=== PATIENT | male | born 1950 | race Caucasian/White ===

== ENCOUNTER 2025-03-12 05:35 | Emergency (ER) | payer MEDICARE, MEDICAID ==
[~2025-03-12] VITALS: Ht 180.3 cm; Wt 99.8 kg
[2025-03-12] MEDS ORDERED: HYDROMORPHONE 1 MG/1 ML DISP.SYRIN ONE (06:02)
[2025-03-12] MEDS ORDERED: ONDANSETRON ODT 4 MG TAB.RAPDIS ONE (06:02)
[2025-03-12] MEDS: ONDANSETRON ODT 4 MG TAB.RAPDIS SL ONE (06:10)
[2025-03-12] MEDS: HYDROMORPHONE 1 MG/1 ML DISP.SYRIN IM ONE ×2 (06:11→07:39)
[2025-03-12] MEDS ORDERED: diphenhydrAMINE 50 MG/1 ML VIAL ONE (07:37)
[2025-03-12] MEDS ORDERED: HYDROMORPHONE 2 MG/1 ML DISP.SYRIN ONE (07:37)
[2025-03-12] MEDS: diphenhydrAMINE 50 MG/1 ML VIAL IM ONE (07:39)
[2025-03-12] MEDS ORDERED: NAPR500T6 PO (09:10)
[2025-03-12 09:34] VITALS: BP 142/86; TEMP 97.4; O2SAT 98
== END 2025-03-12 09:36 | disposition home or self-care (01) ==
LOC: ER 05:35
DX: S16.1XXA Strain of muscle, fascia and tendon at neck level, initial encounter (principal); S09.8XXA Other specified injuries of head, initial encounter; R10.31 Right lower quadrant pain; Y04.8XXA Assault by other bodily force, initial encounter; Y93.89 Activity, other specified; Y92.89 Other specified places as the place of occurrence of the external cause; Y99.8 Other external cause status
CPT/HCPCS: 99285; 70450; 72040; 96372 ×2; J1171 ×2; A4606; A4663; J1200; Q0162

== ENCOUNTER 2025-09-22 04:51 | Emergency (ER) | payer BC, MEDICAID ==
[~2025-09-22] VITALS: Ht 180.3 cm; Wt 99.8 kg
[~2025-09-22 04:51] MED LIST: NAPR500T6 PO
[2025-09-22 06:48] LABS: PLATELET COUNT (AUTO) 197 K/uL (152-348); RED BLOOD CELL COUNT(AUTO) 4.11 MIL/uL (4.06-5.63); RED CELL DISTRIBUTION WIDTH 14.3 % (12.1-16.2); WHITE BLOOD COUNT (AUTO) 5.6 K/uL (3.6-10.2)
[2025-09-22 06:57] LABS: ASPARTATE AMINOTRANSFERASE 13 U/L (15-37); CREATININE 0.8 mg/dL (0.6-1.3); SODIUM SERUM 145 mmol/L (136-145); TOTAL PROTEIN, SERUM 7.4 g/dL (6.4-8.2); UREA NITROGEN, BLOOD 18 mg/dL (7-18)
[2025-09-22 06:58] LABS: ETHANOL < 3 MG/DL (0-10)
[2025-09-22 10:21] LABS: *BILIRUBIN,URIN NEGATIVE (NEGATIVE); *BLOOD, URINE NEGATIVE (NEGATIVE); *CLARITY,URINE CLEAR (CLEAR); *COLOR,URINE YELLOW (YELLOW); *KETONES,URINE NEGATIVE (NEGATIVE); *PROTEIN,URINE NEGATIVE (NEGATIVE); *UROBILINOGEN,URINE 0.2 E.U./dl (NORMAL); LEUKOCYTE ESTERASE ,URINE NEGATIVE (NEGATIVE); NITRITE, URINE NEGATIVE (NEGATIVE); UGLUCOSE NEGATIVE (NEGATIVE)
[2025-09-22 10:31] LABS: *AMPHETAMINE, URINE POSITIVE (NEGATIVE); *BARBITURATE, URINE NEGATIVE (NEGATIVE); *BENZODIAZEPINE, URINE NEGATIVE (NEGATIVE); *CANNABINOID, URINE NEGATIVE (NEGATIVE); *COCCAINE, URINE NEGATIVE (NEGATIVE); *OPIATE, URINE NEGATIVE (NEGATIVE); *PHENCYCLIDINE SCREEN,URINE POSITIVE (NEGATIVE); FENTANYL, URINE POSITIVE (NEGATIVE)
[2025-09-22] MEDS ORDERED: diphenhydrAMINE 50 MG/1 ML VIAL ONE (14:56)
[2025-09-22] MEDS ORDERED: LORAZEPAM 2 MG/1 ML VIAL ONE (14:56)
[2025-09-22] MEDS ORDERED: HALOPERIDOL LACTATE 5 MG/1 ML VIAL ONE (14:56)
[2025-09-22] MEDS: diphenhydrAMINE 50 MG/1 ML VIAL IM ONE (15:02)
[2025-09-22] MEDS: LORAZEPAM 2 MG/1 ML VIAL IM ONE (15:02)
[2025-09-22] MEDS: HALOPERIDOL LACTATE 5 MG/1 ML VIAL IM ONE (15:02)
[2025-09-22] MEDS: IV NORMAL SALINE 1000 ML BAG IV ONE (21:30)
[2025-09-23 04:19] VITALS: BP 146/85; O2SAT 99
== END 2025-09-23 06:55 | disposition left against medical advice (07) ==
LOC: ER 05:10
DX: R41.82 Altered mental status, unspecified (principal); F19.10 Other psychoactive substance abuse, uncomplicated; Z88.7 Allergy status to serum and vaccine; Z79.899 Other long term (current) drug therapy
CPT/HCPCS: 36415; 70450; 72072; 72100; 85025; A4606; A4663; G0480; J1200; J1630; J2060; J7040